=== PATIENT | male | born 1955 | race Caucasian/White ===

== ENCOUNTER 2022-02-01 09:14 | Outpatient (CLI) | payer OTHER, SELFPAY ==
--- NOTE | ~2022-02-01 | XR_ITS ---
EXAM: XR shoulder RT min 2V HISTORY: Pain in right shoulder COMPARISON: None available FINDINGS: Normal mineralization. Visualized lungs are clear. No fracture or dislocation. Mild degene rative change at the acromioclavicular and glenohumeral joints. No lytic or blastic lesions. Incident al note of significant degenerative change in the thoracic spine. IMPRESSION: Mild degenerative AC joint and glenohumeral joint changes. Reviewed, dictated and finalized at location K.
== END 2022-02-01 09:15 ==
LOC: MICIMG 09:22
PROVIDERS: PCP Family Medicine; Visit Provider Family Medicine
DX: M25.511 Pain in right shoulder (principal)
CPT/HCPCS: 73030

== ENCOUNTER 2022-03-17 11:39 | Outpatient (CLI) | payer OTHER, SELFPAY ==
--- NOTE | ~2022-03-17 | MR_ITS ---
EXAMINATION: MR shoulder RT w con DATE: 03/17/2022 13:08 INDICATION: Right shoulder pain TECHNIQUE: Magnetic resonance imaging (MRI) of the right shoulder was performed following intra-edwin cular gadolinium contrast injection and without intravenous contrast. Details of the glenohumeral lavon nt injection have been dictated separately. Sequences included axial T2-weighted FS FSE, axial T1-we ighted FS FSE, coronal oblique T1-weighted FS FSE, coronal oblique T2-weighted FSE, sagittal T2-weigh anupama FS FSE, sagittal T1-weighted FSE, and ABER (abduction external rotation) T1-weighted FS FSE. COMPARISON: Right shoulder radiographs dated 02/01/2022 FINDINGS: Coracoacromial arch: The acromion undersurface is curved in morphology (type II) with very small subacromial spurs. The co racoacromial ligament is normal. Mild to moderate acromioclavicular osteoarthritis with small inferio rly directed osteophyte at the lateral head of the clavicle. Rotator cuff: Mild supraspinatus tendinopathy. There is contrast extending from the joint space into the subacromia l/subdeltoid bursa through a full-thickness tear at the anteriormost insertion of the supraspinatus t endon. The articular sided tear is approximately 1 mm in AP width. Contrast enhanced intrasubstance c omponent to the tear extends for approximately 1 cm AP along the superior facet footplate. There is s imilar small approximately 1 mm wide contrast-enhanced tear defect along the bursal surface with more extensive fraying with irregular contour to the bursal side of the tendon which extends for approxim ately 1.5 cm AP the infraspinatus, teres minor and subscapularis tendons are normal. Normal rotator c uff muscle bulk and signal. Biceps tendon, glenoid labrum and glenohumeral cartilage: Long head of the biceps tendon is normal. Mild partial-thickness cartilage loss with smooth chondral surface along the inferomedial aspect of the humeral head and cephalad half of the glenoid. Small mar ginal osteophytes replacing a significant portion of the meniscal tissue at the posterior to posterio r superior glenoid labrum with mild fraying of the residual posterior superior labral tissue normal a nterosuperior sublingual foramen. Bones and other: Normal marrow signal with no edema, fracture or abnormal marrow replacing process. There are a few small round likely filling defect likely representing loose osteochondral bodies located anteriorly i n the subdeltoid bursa, the largest measuring 6 mm in maximal diameter. IMPRESSION: 1. Moderate supraspinatus tendinopathy with intrasubstance predominant tear along the superior facet footplate with contrast extending through a full-thickness perforation including very small bursal an d articular sided components to the tear. 2. Moderate glenohumeral osteoarthritis with chronic degeneration of the posterior to posterior super ior glenoid labrum which is been largely replaced by osteophyte. 3. Mild to moderate acromioclavicular osteoarthritis. Reviewed, dictated and finalized at location A. IMPRESSION: 1. Moderate supraspinatus tendinopathy with intrasubstance predominant tear sabino ng the superior facet footplate with contrast extending through a full-thicknes s perforation including very small bursal and articular sided components to the tear. 2. Moderate glenohumeral osteoarthritis with chronic degeneration of the deputy harbormaster ior to posterior superior glenoid labrum which is been largely replaced by oste ophyte. 3. Mild to moderate acromioclavicular osteoarthritis.
--- NOTE | ~2022-03-17 | XR_ITS ---
EXAMINATION: XR fl inj shoulder RT - MR/CT DATE: 03/17/2022 12:43 INDICATION: Right shoulder pain. No prior surgery or dislocation. TECHNIQUE: A time-out was performed to verify the patient's name, date of , and procedure to b e performed. The procedure including the risks, benefits, and alternatives was discussed with the pat ient. Risks discussed included bleeding and infection. The patient understood the risks and agreed to proceed. The skin overlying the right glenohumeral joint was prepped and draped in usual sterile fas hion. Anesthetic was administered with 1% lidocaine subcutaneously. A 22 G needle was advanced unde r fluoroscopic guidance into the joint. Subsequently, injectate consisting of 12 mL of 1:200 Multiha nce, 1:4 1% lidocaine, and 1:4 Omnipaque 240 was instilled. The needle was removed and the entry sit e was cleaned and dressed. There were no immediate complications. Fluoroscopy exposure time was 0.0 minutes. The total number of images was 4. FINDINGS: Real-time fluoroscopy demonstrates the needle and contrast in the right glenohumeral joint. IMPRESSION: 1. Successful right glenohumeral joint injection of contrast for subsequent MR arthrography. Reviewed, dictated and finalized at location B.
== END 2022-03-17 11:40 ==
PROVIDERS: PCP Family Medicine; Visit Provider Family Medicine
DX: M25.511 Pain in right shoulder (principal)
CPT/HCPCS: 23350; 73222; 77002; A9577; Q9966

== ENCOUNTER 2024-05-04 07:56 | Outpatient (CLI) | payer MEDICARE, OTHER, SELFPAY ==
--- NOTE | ~2024-05-04 | CT_ITS ---
EXAMINATION:CT diagnostic chest wo con DATE: 05/04/2024 08:22 INDICATION: Shortness of breath. Obstructive sleep apnea. Solitary pulmonary nodule. TECHNIQUE: Computed tomography (CT) of the chest was performed without intravenous contrast. Automate d exposure control and iterative reconstruction technique were employed. The dose-length product (DLP ) was 139.07 mGy-cm. COMPARISON: None. FINDINGS: There is mild scarring at the lung apices. There is mild emphysema. There is mild scarring in paraspinal right lower lobe. Calcified pulmonary nodules and calcified hilar lymph nodes are consi stent with old granulomatous disease. There are a few scattered nodules in the lungs measuring up to 4 mm, likely benign. No pleural effusion. The heart size is normal. There are coronary artery calcifi cations. There are calcifications of the aortic valve. No pericardial effusion. There is diffuse hepa tic steatosis. Calcifications in the liver and spleen are consistent with old granulomatous disease. There are gallstones in the gallbladder, which is normal in size. There is mild thoracic spondylosis. There is mild chronic anterior wedging of L1 and L2 vertebral bodies. IMPRESSION: 1. Small pulmonary nodules, likely benign. 2. Mild emphysema. Reviewed, dictated and finalized at location A.
--- NOTE | 2024-05-04 16:28 | P.PCNPFT_ITS ---
PFT Procedure Performed PFT Procedure Performed Spirometry with Pre/Post Bronchodilator Plethysmography (Lung Vol) Diffusing Cap (DLCO) Flow Vol Loop PFT Interpretation This is a pulmonary function test with pre and post-bronchodilator spirometry, plethysmography and diffusing capacity. The test was performed and results interpreted in accordance with the 2019 and 2005 ATS/ERS Task Force guidelines respectively using the Global Lung Function Initiative-2012 reference equations. Patient demonstrated good effort and cooperation. Reproducibility criteria were met. The quality of the pre bronchodilator spirometry maneuver was Grade A and post bronchodilator spirometry maneuver was Grade B. Findings: Spirometry: There is decreased maximal expiratory airflow at all lung volumes. The contour the inspiratory flow tracing is normal. The pre bronchodilator FVC is 4.54 L, 96% predicted. The pre bronchodilator FEV1 is 2.85 L, 80% predicted. The pre bronchodilator FEV1: FVC ratio 63%. The post bronchodilator FVC is 4.71 L, representing a 4% increase. The post bronchodilator FEV1 is 1.70 L, rep resenting a 40% decrease. The post bronchodilator FEV1: FVC ratio is 36%. Plethysmography: The total lung capacity is 6.79 L, 91% predicted. The functional residual capacity is 3.21 L, 82% predicted. The residual volume is 2.25 L, 91% predicted. Diffusing capacity: The diffusing capacity unadjusted for hemoglobin and carboxyhemoglobin is 24.3, 87% predicted. The diffusing capacity adjusted for alveolar volume is 3.58, 91% predicted. Impression: There is a mild obstructive abnormality with a normal FEV1. There is a significant decrease in the post bronchodilator FEV1 after inhaling a single dose of albuterol, which may indicate a paradoxical bronchoconstriction to inhaled albuterol. The lung volumes are normal. The DLCO is normal. There are no prior studies for comparison
--- NOTE | 2024-05-04 16:35 | WPDSIXMINUTE ---
Six Minute Walk Procedure Procedure Performed Pulmonary Stress Test (6 min walk) Six Minute Walk Six Minute Walk: This is a 6 minute walk test. The test was performed and interpreted in accordance with the 2014 ERS/ATS task force guidelines. Findings: The patient's resting room air oxygen saturation measured by pulse oximetry was 98% and heart rate was 51 bpm. Patient ambulated for 366 meters and oxygen saturation remained 96 to 98%. Heart rate at the end of the study was 66 bpm. The patient did not qualify for supplemental oxygen at rest or with ambulation. There are no prior studies for comparison.
== END 2024-05-04 07:57 | disposition home or self-care (01) ==
PROVIDERS: PCP Family Medicine; Visit Provider Physician Assistant
DX: J43.9 Emphysema, unspecified (principal); G47.33 Obstructive sleep apnea (adult) (pediatric); R94.2 Abnormal results of pulmonary function studies; R91.8 Other nonspecific abnormal finding of lung field
CPT/HCPCS: 71250; 94060; 94618; 94726; 94729

== ENCOUNTER 2025-05-31 13:07 | Outpatient (CLI) | payer MEDICARE, OTHER, SELFPAY ==
--- NOTE | ~2025-05-31 | CT_ITS ---
CT Scan of the Chest without Contrast: Clinical Indication: Lung cancer screening, nicotine dependence Technique: Contiguous sections were acquired throughout the chest without intravenous contrast. Dose reduction technique was used on this scan by utilizing automated exposure control and iterative recon struction technique. The dose-length product (DLP) was 137.76 mGy-cm. COMPARISON: 05/04/2024 Findings: There is no evidence of any significant mediastinal, hilar or axillary lymphadenopathy. The mediastin al soft tissues appear normal. There is no evidence of pleural or pericardial effusion. 3 mm right lower lobe pulmonary nodule present (axial image 93). Additional 2 mm right lower lobe pul monary nodule present (axial image 105). Images through the upper abdomen reveal cholelithiasis. Impression: Lung RADS 2: Benign appearance. 12 month follow-up screening CT advised. Reviewed, dictated and finalized at [facility]. Impression: Lung RADS 2: Benign appearance. 12 month follow-up screening CT advised.
--- OUTSIDE RECORDS SUMMARY | 2025-05-31 13:21 | XMS_ITS | Patient Health Record ---
Author Organization [facility] Address [address] [place] [address] Care Team Providers Care Weeder Thinner Name Role Phone Dr. Marsha Nichols Primary Care Provider [phone] Ashlyn Milner Unavailable [phone] Marsha Galvan Unavailable [phone] Migration, Provider Unavailable Unavailable Allergies Allergen (clinical drug ingredient) Drug/Non Drug Allergy documented on EMR Reaction Allergy Type Onset Date Status bupropion Wellbutrin XL Unknown Drug Allergy 03/28/2021 Ac tive atorvastatin Atorvastatin Unknown Drug Allergy 08/10/2023 Active bupropion buPROPion Unknown Drug Allergy 07/04/2021 Active codeine Codeine upset stomach Drug Allergy 02/04/2022 Ac tive metformin metFORMIN GI issues Drug Allergy 08/10/2023 Active Results Component Value Reference Range Notes Echocardiogram Reviewed date:03/01/2025 11:40:11 AM Interpretation: Performing Lab: Notes/Report: Ultrasound : Abd/Aorta Comp Reviewed date:12/17/2024 11:33:50 AM Interpretation:Negative Performing Lab: Notes/Report: Negative CT Scan : Chest Reviewed date:12/17/2024 11:34:20 AM Interpretation: Performing Lab: Notes/Report: Reason For Referral Reason aortic stenosis Diagnosis 1 Nonrheumatic aortic (valve) stenosis (I35.0) Referral Organization [facility] Referring Provider First Name Dr. Larson Referring Provider Last Name Nichols [facility]erred Provider Specialty Cardiology General Notes Sangita Armando 02/21 01:51:28 PM CDT >Joselin Louis Jessica 02/24/2025 09:04:25 AM CDT >Referral faxed to Dr. Castro [phone], Jenna Kumar 05/10/2025 01:35:24 PM CDT >fax sent to check on status of referral, Galina Morfin 05/11/2025 04:32:07 PM CDT >Patient is scheduled for an appointment 05/26/2025 at 10:15 am. 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 Glass for [facility]. Pt hadn't seen Dr. Gonzales since last screening colonoscopy in 2019. Dr. Gonzales no longer taking new pts., Jenna Kumar 01/24/2025 01:47:17 PM CDT >not seeing this in [facility], can you check on this please, Mariposa Olivera 03/07/2025 03:42:53 PM CDT >No referral or appt in [facility]. Refaxed referral, Jenna Kumar 05/11/2025 10:01:12 AM CDT >pt seen 03/23/25 for consult Referral Priority Routine Referral Appointment Date 03/23/2025 Medications Medication SIG (Take, Route, Frequency, Duration) Notes Start Date End Date Status Vitamin C 500 MG Capsule 1 capsule Orally daily Active Vitamin D 50 MCG (2000 UT) Tablet 1 tablet Orally Once a day Active Apple Cider Vinegar oral; Duration: 0 *Pick strength-form from [facility] for eRX* 02/08/2024 Active Fish Oil oral; Duration: 0 *Pick strength-form from [facility] for eRX* 11/18/2022 Not-Taking Ezetimibe 10 MG Tablet 1 tablet Orally Once a day; Duration: 90 days Active Omeprazole 20 MG Capsule Delayed Release TAKE 1 CAPSULE BY MOUTH EVERY DAY; Duration: 90 Active Vitamin B-12 1000 MCG Tablet 1 Oral every day; Duration: 0 02/05/2022 Active Escitalopram Oxalate 20 MG Tablet 1 tablet Orally Once a day; Duration: 90 days Active Fenofibrate 48 MG Tablet TAKE 1 TABLET BY MOUTH EVERY DAY WITH FOOD; Duration: 90 Active Gabapentin 100 MG Capsule 1 capsule at bedtime Orally Once a day; Duration: 30 days 11/23/2024 Active amLODIPine Besylate 5 MG Tablet 1 tablet Orally Once a day; Duration: 90 days Active ALPRAZolam 0.25 MG Tablet 1 Oral every day; Duration: 0 ,PRN Reason:for anxiety 02/15/2024 Not-Taking Immunizations Vaccine Route Administration Date Status Comme nts Influenza, high-dose seasonal, quadrivalent, preservative free >65 yrs IM Intramuscular 08/04/2023 Administered ,sourcename : Historical information -source unspecified ,immstatus : Complete Influenza, seasonal, injectable, preservative free, 3 yrs and above Unknown 08/26/2022 Administered [facility] ,sourcename : Pharmacy Source VFC Code: : Alejandro Covid-19 Vaccine Unknown 11/02/2020 Administered ,sourcename : Historical information -from other registry Source VFC Code: : Alejandro Covid-19 Vaccine Unknown 12/03/2020 Administered ,sourcename : Historical information -from other registry Source VFC Code: : Pneumococcal polysaccharide PPV23 Unknown 07/05/2020 Administered ,sourcename : Historical information -from other registry Source VFC Code: : Tdap Unknown 10/14/2015 Administered ,sourcename : Historical information -from other registry Source VFC Code: : Tdap IM Intramuscular 12/15/2023 Administered ,sourc ename : New immunization record ,immstatus : Complete Social History Tobacco Use: Social History Observation Description Date Details (start date - stop date) Current Smoker 12/03/1973 - NA Social History Drug/Alcohol: Social Info Question Answer Notes AUDIT-C (Standard) Did you have a drink containing alcohol in the past year? Yes How often did you have six or more drinks on one occasion in the past year? 2 to 4 times a month (2 points) How many drinks did you have on a typical day when you were drinking in the past year? 3 or 4 drinks (1 point) How often did you have a drink containing alcohol in the past year? 2 to 4 times a month (2 points) Points 5 Interpretation Positive Tobacco Use: Social Info Question Answer Notes Tobacco Control (Standard) Tobacco use: Current smoker When did you start smoking? 12/03/1973 How often do you smoke cigarettes? Every day How many cigarettes a day do you smoke? 11-20 How soon after you wake up do you smoke your first cigarette? Within 5 minutes Are you interested in quitting? Not ready to quit Additional Details Category Social Info Options Details Migrated Social History Migrated Social History Number of cigarettes/day:20 (One Pack) , Tobacco history:Current every day smoker , Frequency of drinks:social basis only , Marital status: Problems Problem Type SNOMED Code ICD Code Onset Dates Problem Status W/U Status Risk Notes Problem Emphysema (63298963) Emphysema, unspecified (J43.9) 01/22/20 24 Active confirmed Problem Obstructive sleep apnea syndrome (78223317) HOLGER on CPAP (G47.33) Active confirmed Problem Anal and rectal polyp (775230464) Dysplastic rectal polyp (K62.1) Active confirmed Problem Vitamin B deficiency (22686450) Vitamin B deficiency, unspecified (E53.9) 12/15/19 24 Active confirmed Problem Vitamin D deficiency (37943622) Vitamin D deficiency, unspecified (E55.9) 12/15/19 24 Active confirmed Problem Tobacco user (954157812) Nicotine dependence, cigarettes, uncomplicated (F17.210) 12/25/19 24 Active confirmed Problem Generalized anxiety disorder (64878000) Generalized anxiety disorder (F41.1) 08/04/20 23 Active confirmed Problem Chronic rhinitis (07959086) Chronic rhinitis (J31.0) 02/05/20 22 Active confirmed Problem Rotator cuff (capsule) sprain and strain (840.4) 06/19/20 17 Problem resolved confirmed Problem General examination of patient (883846463) Routine general medical examination at health care facility (V70.0) 11/20/19 17 Problem resolved confirmed Problem Knee joint effusion (370384465) Effusion, left knee (M25.462) 05/11/20 17 Problem resolved confirmed Problem Dizziness and giddiness (144523673) Dizziness and giddiness (R42) 08/07/20 17 Problem resolved confirmed Problem Fatigue (31169117) Other fatigue (R53.83) 11/20/19 17 Problem resolved confirmed Problem Encounter for symptom (008449895) Encounter for screening for other disorder (Z13.89) 03/30/20 18 Problem resolved confirmed Problem Sprain of shoulder rotator cuff (disorder) (643695463894) Sprain of unspecified rotator cuff capsule, initial encounter (S43.429A) 06/19/20 17 Problem resolved confirmed Problem Lymphadenopathy (00529342) Enlarged lymph nodes, unspecified (R59.9) 11/20/19 17 Problem resolved confirmed Problem Headache (08540647) Headache (R51) 04/14/20 16 Problem resolved confirmed Problem Pain in left arm (358526724) Pain in left arm (M79.602) 06/19/20 17 Problem resolved confirmed Problem Pain in right arm (496592399) Pain in right arm (M79.601) 06/19/20 17 Problem resolved confirmed Problem Bursitis of right shoulder (421198476534437) Bursitis of right shoulder (M75.51) 06/19/20 17 Problem resolved confirmed Problem Other specified disorders of synovium and tendon, unspecified site (M67.80) 05/11/20 17 Problem resolved confirmed Problem Low back pain (226342536) Low back pain (M54.5) 01/24/20 18 Problem resolved confirmed Problem Pain of left knee joint (finding) (262740808252203) Pain in left knee (M25.562) 03/30/20 18 Problem resolved confirmed Problem Knee joint effusion (844796186) Effusion, unspecified knee (M25.469) 05/11/20 17 Problem resolved confirmed Problem Pain in eye (07890681) Ocular pain, right eye (H57.11) 11/26/19 17 Problem resolved confirmed Problem Moderate major depression, single episode (40598499) Major depressive disorder, single episode, moderate (F32.1) 11/20/19 17 Problem resolved confirmed Problem Hypomagnesemia (893962800) Hypomagnesemia (E83.42) 11/20/19 17 Problem resolved confirmed Problem Screening - procedure intent (802846065) Special screening for other specified conditions (V82.89) 03/30/20 18 Problem resolved confirmed Problem Blood chemistry abnormal (754411534) Other abnormal blood chemistry (790.6) 11/20/19 17 Problem resolved confirmed Problem Enlargement of lymph nodes (61018914) Enlargement of lymph nodes (785.6) 04/14/20 16 Problem resolved confirmed Problem Headache (35346340) Headache (784.0) 04/14/20 16 Problem resolved confirmed Problem Disturbance of skin sensation (268425083) Disturbance of skin sensation (782.0) 04/14/20 16 Problem resolved confirmed Problem Malaise and fatigue (440113552) Other malaise and fatigue (780.79) 04/14/20 16 Problem resolved confirmed Problem Sleep apnea (55460988) Unspecified sleep apnea (780.57) 06/01/20 18 Problem resolved confirmed Problem Dizziness and giddiness (988649847) Dizziness and giddiness (780.4) 08/07/20 17 Problem resolved confirmed Problem Low back pain (635872422) Low back pain, unspecified (M54.50) 02/05/20 22 Active confirmed Problem Prediabetes (552539843) Prediabetes (R73.03) 02/15/20 24 Active confirmed Problem Erectile dysfunction (disorder) (635332473) Male erectile dysfunction, unspecified (N52.9) 02/05/20 22 Active confirmed Problem Gastro-esophageal reflux disease without esophagitis (704644932) Gastro-esophageal reflux disease without esophagitis (K21.9) 11/18/19 23 Active confirmed Problem Pulmonary fibrosis (95971388) Pulmonary fibrosis, unspecified (J84.10) 01/22/20 24 Active confirmed Problem Chronic obstructive pulmonary disease (75872456) Chronic obstructive pulmonary disease, unspecified (J44.9) 12/15/19 24 Active confirmed Problem Aortic valve disorder (8554877) Nonrheumatic aortic (valve) stenosis (I35.0) 09/23/20 23 Active confirmed Problem Essential hypertension (79856437) Essential (primary) hypertension (I10) 02/06/20 22 Active confirmed Problem Hyperlipidemia (64618784) Hyperlipidemia, unspecified (E78.5) 02/06/20 22 Active confirmed Problem Hyperglycemia due to type 2 diabetes mellitus (570322275329855) Type 2 diabetes mellitus with hyperglycemia (E11.65) 11/18/19 23 Active confirmed Problem Atherosclerotic heart disease of [place] coronary artery without angina pectoris (563890118261366) Coronary artery calcification (I25.10) Active confirmed Problem Cervicalgia (23379581) Cervicalgia (M54.2) 01/24/20 18 Problem resolved confirmed Vital Signs Heart Rate 86 /min 12/26/2024 Temperature 97.1 degrees Fahrenheit 12/26/2024 Respiratory Rate 18 /min 12/26/2024 Blood pressure diastolic 80 mm Hg 12/26/2024 Oximetry 97 % 12/26/2024 Height-cm 179.71 cm 12/26/2024 Weight-kg 95.71 kg 12/26/2024 Height 70.75 in 12/26/2024 Blood pressure systolic 150 mm Hg 12/26/2024 Weight 211 lbs 12/26/2024 BMI 29.63 kg/m2 12/26/2024 Procedures Procedure Date Ordered Date Performed Result Body Sit e ESOPHAGOGASTRODUODENOSCOPY 10/05/2024 01/19/2012 N/A Colonoscopy 10/05/2024 01/11/2019 N/A Encounters Encounter Location Date Provider Diagnosis [address] [address] 10/05/2024 Marsha Galvan [address] [address] 12/26/2024 Ashlyn Milner Encounter for genera l adult medical examination without abnormal findings Z00.00 ; Emphysema, unspecified J43.9 ; Nonrheumatic aortic (valve) stenosis I35.0 ; Prediabetes R73.03 ; Essential (primary) hypertension I10 ; Hyperlipidemia, unspecified E78.5 ; Vitamin D deficiency E55.9 ; Generalized anxiety disorder F41.1 ; Nicotine dependence, cigarettes, uncomplicated F17.210 ; Vitamin B deficiency, unspecified E53.9 ; Prostate cancer screening Z12.5 ; Colon cancer screening Z12.11 and HOLGER on CPAP G47.[address] [address] 10/01/2024 Provider Migration [address] [address] 10/02/2024 Provider Marcella [address] [address] 11/23/2024 Dr. Marsha Nichols [address] [address] 12/15/2024 Marsha Galvan [address] [address] 12/27/2024 Ashlyn Milner [address] [address] 01/01/2025 Dr. Marsha Nichols Nonrheumatic aortic (valve) stenosis I35.0 and Coronary artery calcification I25.[address] [address] 03/07/2025 Marsha Galvan Assessments Encounter Date Diagnosis (ICD Code) Assessment Notes Treatment Notes Treatment Clinical Notes Section Notes 12/26/2024 Emphysema, unspecified (ICD-10 - J43.9) -He sees slip operator, and has been prescribed inhalers. He hasn't picked them or started them v 12/26/2024 Encounter for general adult medical examination without abnormal findings (ICD-10 - Z00.00) Subsequent AWV completed today, will recheck labswork today including PSA. He believes he had CT scan done in September of 2024. Referral to Dr. Gonzales for colonoscopy. Declines Shingles, Covid, or RSV vaccine. UTD with pneumonia, Flu, and TDAP. Continues to smoke. v 01/01/2025 Nonrheumatic aortic (valve) stenosis (ICD-10 - I35.0) 01/01/2025 Coronary artery calcification (ICD-10 - I25.10) 12/26/2024 Nonrheumatic aortic (valve) stenosis (ICD-10 - I35.0) -Last echo was in 2022 showed mild to moderate aortic stenosis. After visit had time to review records. There are no cardiology consult notes. If he hasn't seen cardiology would like to refer. Would also like to get repeat Echo. v 12/26/2024 Prediabetes (ICD-10 - R73.03) -Last A1C was 6.1. Will recheck labs today v 12/26/2024 Essential (primary) hypertension (ICD-10 - I10) -BP is elevated. He is on lisinopril 20mg and amlodpine 5 mg v 12/26/2024 Hyperlipidemia, unspecified (ICD-10 - E78.5) -Trigs have been elevated, will recheck lipid panel. Statin was previously stopped due to myalgias. -After visit was able to look into history more closely and calculated Del Valle score to be 49.3% which is 4x more likely to have CV event in next 10 year than the avg risk. - See Telephone note - Will offer cardiology referral, starting statin and baby ASA v 12/26/2024 Vitamin D deficiency (ICD-10 - E55.9) -Will recheck Vit D level v 12/26/2024 Generalized anxiety disorder (ICD-10 - F41.1) -Feels anxiety is controlled with Lexapro, buspar, and PRN alprazolam v 12/26/2024 Nicotine dependence, cigarettes, uncomplicated (ICD-10 - F17.210) >50 pack year hx. He has no desire to quit smoking. - Recommendation to stop smoking. - Offer resources or support for smoking cessation. v 12/26/2024 Vitamin B deficiency, unspecified (ICD-10 - E53.9) -Takes B12 daily v 12/26/2024 Prostate cancer screening (ICD-10 - Z12.5) -Due for PSA. Ordered today v 12/26/2024 Colon cancer screening (ICD-10 - Z12.11) -Due for colonoscopy. Referred to Dr. Gonzales. Last colonoscopy was in 2019 and it showed 2 polyps were tubular adenoma, and then rectal polyp showed hyperplastic change v 12/26/2024 HOLGER on CPAP (ICD-10 - G47.33) Wears CPAP nightly for 4-5 years v Plan Of Treatment No Information Insurance Providers Payer Name Payer Address Payer Phone Subscriber Number Group Number Insured Name Patient Relationship to Insured Coverage Start Date Coverage End Date [employer] Medicare RHC [address] [place] [address] [id number] [employer]ocha Self - patient is the insured [address] [place] [address] [id number] PLAN G Van Rocha Self - patient is the insured 3 Medical (General) History Medical History History ICD Code Type 2 diabetes mellitus with hyperglyce [place] E11.65 Type 2 diabetes mellitus without complic ations E11.9 Vitamin B deficiency, unspecified E53.9 Vitamin D deficiency, unspecified E55.9 Hyperlipidemia, unspecified E78.5 Nicotine dependence, cigarettes, uncompl icated F17.210 Generalized anxiety disorder F41.1 Obstructive sleep apnea (adult) (pediatr ic) G47.33 Essential (primary) hypertension I10 Nonrheumatic aortic (valve) stenosis I35 .0 Emphysema, unspecified J43.9 Chronic obstructive pulmonary disease, u nspecified J44.9 Gastro-esophageal reflux disease without esophagitis K21.9 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
== END 2025-05-31 13:08 | disposition home or self-care (01) ==
PROVIDERS: PCP Family Medicine; Visit Provider Physician Assistant
DX: Z12.2 Encounter for screening for malignant neoplasm of respiratory organs (principal); Z87.891 Personal history of nicotine dependence
CPT/HCPCS: 71271